=== PATIENT | female | born 1970 | race Caucasian/White ===

== ENCOUNTER 2018-08-19 23:39 | Emergency (ER) | payer SELFPAY ==
[~2018-08-19] VITALS: Ht 162.5 cm; Wt 54.4 kg
[~2018-08-19 23:39] MED LIST: CATAFLAM50 MG PO; KEFLEX500 MG PO; NKHM; PEN-VEE K500 MG PO
[2018-08-19 23:40] VITALS: BP 109/79
[2018-08-19] MEDS ORDERED: Motrin,Rufen800 MG PO (23:52)
[2018-08-19] MEDS ORDERED: PENICILLIN-VK500 M1 PO (23:52)
== END 2018-08-20 00:20 | disposition home or self-care (01) ==
LOC: ED 23:39
DX: K05.219 Aggressive periodontitis, localized, unspecified severity (principal); Z91.040 Latex allergy status

== ENCOUNTER → 2020-08-29 | Outpatient (CLI) | payer OTHER ==
[~2020-08-29] MED LIST changes: +ANTIBIOTIC; +HYDROCODONE-AC1 EAC1 PO; +Motrin,Rufen800 MG PO; +PENICILLIN VK500 MG PO; +PENICILLIN-VK500 M1 PO
== END | disposition home or self-care (01) ==
LOC: COVID19 13:17
PROVIDERS: ATTEND Dentist General Practice
DX: Z01.818 Encounter for other preprocedural examination (principal); Z20.822 Contact with and (suspected) exposure to COVID-19

== ENCOUNTER → 2020-09-02 | Day surgery (SDC) | payer OTHER ==
[2020-08-28 14:02] VITALS: BP 145/80
[2020-09-02] VITALS (7 sets, daily range): BP systolic 110–125; BP diastolic 71–82
[~2020-09-02] VITALS: Ht 162.5 cm; Wt 65.3 kg
== END ==
LOC: SDC 08-28 13:15
PROVIDERS: ATTEND Dentist General Practice
DX: K02.9 Dental caries, unspecified (principal); K05.6 Periodontal disease, unspecified; F41.9 Anxiety disorder, unspecified; K00.7 Teething syndrome; K21.9 Gastro-esophageal reflux disease without esophagitis; F17.210 Nicotine dependence, cigarettes, uncomplicated; Z98.890 Other specified postprocedural states

== ENCOUNTER 2022-10-19 15:33 | Emergency (ER) | payer OTHER ==
[2022-10-19 15:59] VITALS: BP 133/81
[2022-10-19] MEDS ORDERED: VIBRAMYCIN100 MG PO (18:24)
== END 2022-10-19 18:25 | disposition home or self-care (01) ==
LOC: ED 15:33
DX: S20.462A Insect bite (nonvenomous) of left back wall of thorax, initial encounter (principal); F17.200 Nicotine dependence, unspecified, uncomplicated; Z98.51 Tubal ligation status; W57.XXXA Bitten or stung by nonvenomous insect and other nonvenomous arthropods, initial encounter; Y93.89 Activity, other specified; Y92.89 Other specified places as the place of occurrence of the external cause; Y99.8 Other external cause status

== ENCOUNTER 2023-09-11 12:37 | Emergency (ER) | payer OTHER ==
[~2023-09-11] VITALS: Ht 162.5 cm; Wt 63.5 kg
[~2023-09-11 12:37] MED LIST changes: +VIBRAMYCIN100 MG PO
[2023-09-11 12:48] VITALS: BP 153/82
[2023-09-11] MEDS ORDERED: Ondansetron Hydrochloride 4 MG TAB PO ONE (13:00)
[2023-09-11] MEDS ORDERED: Ondansetron Hydrochloride 4 MG/2 ML VIAL IV ONE (13:05)
[2023-09-11] MEDS ORDERED: SODIUM CHLORIDE 0.9% 1,000 ML IV ONE (13:05)
[2023-09-11 13:18] LABS: BASO % 0.4 % (0.0-1.0); EOS # 0.1 10*3/uL (0.0-0.4); EOS % 0.5 % (1.0-4.0); HEMATOCRIT 42.6 % (37.0-47.0); LYMPH # 2.4 10*3/uL (1.3-4.4); LYMPH % 21.4 % (27.0-41.0); MEAN CELL VOLUME 97.5 fl (81.0-99.0); MEAN CORPUSCULAR HGB 32.7 pg (27.0-31.0); MEAN CORPUSCULAR HGB CONC 33.6 g/dl (33.0-37.0); MEAN PLATELET VOLUME 9.4 fl (9.6-12.3); MONO # 0.6 10*3/uL (0.1-1.0); MONO % 5.7 % (3.0-9.0); NEUT # 7.9 10*3/uL (2.3-7.9); NEUT % 71.8 % (47.0-73.0); PLATELET COUNT AUTOMATED 224 10*3/uL (130-400); RED BLOOD COUNT 4.37 10*6/uL (4.10-5.10); RED CELL DISTRI WIDTH 12.4 % (0-14.5); WHITE BLOOD COUNT 11.1 10*3/uL (4.8-10.8)
[2023-09-11 13:32] LABS: BILIRUBIN Negative (Negative); BLOOD 3+ (Negative); CLARITY Cloudy (Clear); COLOR Yellow (Yellow); GLUCOSE Negative (Negative); KETONE Negative (Negative); LEUKO ESTERASE Trace (Negative); NITRITE Negative (Negative); SPECIFIC GRAVITY >= 1.030 (1.001-1.030)
[2023-09-11 13:35] LABS: ALKALINE PHOSPHATASE 100 U/L (46-116); BUN 16 mg/dl (9-23); CHLORIDE 107 mmol/L (98-107); LIPASE 59 U/L (12-53); POTASSIUM 4.1 mmol/L (3.4-5.1); SGPT/ALT 22 U/L (5-49); TOTAL PROTEIN 7.2 gm/dL (6.0-8.0)
[2023-09-11 13:44] LABS: EPITHELIAL CELLS 16-20; RBC TNTC rbc/hpf (0-2)
[2023-09-11 13:45] LABS: BACTERIA 1+
[2023-09-11] MEDS ORDERED: Ketorolac Tromethamine 30 MG/ML VIAL IV ONE (13:50)
[2023-09-11] MEDS ORDERED: Ceftriaxone Sodium 1 GM/10 ML SYR IV ONE (13:55)
[2023-09-11] MEDS ORDERED: MELOXICAM7.5 MG PO (14:39)
[2023-09-11] MEDS ORDERED: FLOMAX0.4 MG PO (14:39)
[2023-09-11] MEDS ORDERED: CEPHALEXIN500 M1 PO (14:39)
[2023-09-11] MEDS ORDERED: ONDANSETRON4 MG SL (14:39)
== END 2023-09-11 14:52 | disposition home or self-care (01) ==
LOC: ED 12:37
PROVIDERS: Nurse Practitioner
DX: N39.0 Urinary tract infection, site not specified (principal); N20.0 Calculus of kidney; F17.200 Nicotine dependence, unspecified, uncomplicated; Z79.2 Long term (current) use of antibiotics; Z79.899 Other long term (current) drug therapy; Z98.51 Tubal ligation status

== ENCOUNTER 2023-11-13 06:06 | Emergency (ER) | payer OTHER ==
[~2023-11-13] VITALS: Ht 165.1 cm; Wt 62.6 kg
[~2023-11-13 06:06] MED LIST changes: +CEPHALEXIN500 M1 PO; +FLOMAX0.4 MG PO; +MELOXICAM7.5 MG PO; +ONDANSETRON4 MG SL
[2023-11-13 06:18] VITALS: BP 131/85
[2023-11-13 06:24] LABS: BILIRUBIN Negative (Negative); BLOOD Negative (Negative); CLARITY Clear (Clear); COLOR Yellow (Yellow); GLUCOSE Negative (Negative); KETONE Negative (Negative); LEUKO ESTERASE Negative (Negative); NITRITE Negative (Negative); PH 5.5 (4.5-8.0); UROBILINOGEN 0.2 E.U./dl (0.0-1.0)
[2023-11-13 06:44] LABS: BACTERIA 1+; RBC 0-2 rbc/hpf (0-2); WBC 0-2 wbc/hpf (0-5)
[2023-11-13] MEDS ORDERED: CIPRO500 MG PO (06:49)
[2023-11-13] MEDS ORDERED: Ciprofloxacin Hydrochloride 500 MG TAB PO ONE (06:50)
== END 2023-11-13 07:00 | disposition home or self-care (01) ==
LOC: ED 06:06
PROVIDERS: Internal Medicine
DX: N39.0 Urinary tract infection, site not specified (principal); K21.9 Gastro-esophageal reflux disease without esophagitis; F17.200 Nicotine dependence, unspecified, uncomplicated; Z98.51 Tubal ligation status; Z98.890 Other specified postprocedural states

== ENCOUNTER 2023-12-10 08:45 | Emergency (ER) | payer OTHER ==
[~2023-12-10] VITALS: Ht 162.5 cm; Wt 62.6 kg
[~2023-12-10 08:45] MED LIST changes: +CIPRO500 MG PO
[2023-12-10 08:52] VITALS: BP 174/124
[2023-12-10] MEDS ORDERED: NURTEC ODT75 MG PO (08:54)
[2023-12-10] MEDS ORDERED: AJOVY225 MG/1.5 SQ (08:54)
[2023-12-10] MEDS ORDERED: SODIUM CHLORIDE 0.9% 1,000 ML IV ONE (09:00)
[2023-12-10] MEDS ORDERED: Ketorolac Tromethamine 15 MG/ML VIAL IV ONE ×2 (09:00→11:35)
[2023-12-10] MEDS ORDERED: Ondansetron Hydrochloride 4 MG/2 ML VIAL IV ONE ×2 (09:00→11:35)
[2023-12-10 09:16] LABS: BASO % 0.5 % (0.0-1.0); EOS # 0.1 10*3/uL (0.0-0.4); EOS % 1.2 % (1.0-4.0); HEMATOCRIT 43.3 % (37.0-47.0); LYMPH # 3.1 10*3/uL (1.3-4.4); LYMPH % 35.1 % (27.0-41.0); MEAN CELL VOLUME 97.7 fl (81.0-99.0); MEAN CORPUSCULAR HGB 32.5 pg (27.0-31.0); MEAN CORPUSCULAR HGB CONC 33.3 g/dl (33.0-37.0); MEAN PLATELET VOLUME 9.2 fl (9.6-12.3); MONO # 0.5 10*3/uL (0.1-1.0); MONO % 5.6 % (3.0-9.0); NEUT # 5.1 10*3/uL (2.3-7.9); NEUT % 57.4 % (47.0-73.0); PLATELET COUNT AUTOMATED 214 10*3/uL (130-400); RED BLOOD COUNT 4.43 10*6/uL (4.10-5.10); RED CELL DISTRI WIDTH 12.7 % (0-14.5); WHITE BLOOD COUNT 8.9 10*3/uL (4.8-10.8)
[2023-12-10 09:29] LABS: BILIRUBIN 1+ (Negative); BLOOD 1+ (Negative); CLARITY Turbid (Clear); GLUCOSE Negative (Negative); LEUKO ESTERASE 2+ (Negative); NITRITE Positive (Negative)
[2023-12-10 09:38] LABS: BUN 10 mg/dl (9-23); CHLORIDE 107 mmol/L (98-107); POTASSIUM 3.6 mmol/L (3.4-5.1)
[2023-12-10 09:38] LABS: COLOR Red (Yellow); KETONE Negative (Negative)
[2023-12-10 09:45] LABS: RBC 51-100 rbc/hpf (0-2)
[2023-12-10] MEDS ORDERED: FLOMAX0.4 MG PO (11:34)
[2023-12-10] MEDS ORDERED: MACROBID100 M1 PO (11:34)
[2023-12-10] MEDS ORDERED: Ondansetron4 MG PO (11:34)
[2023-12-10] MEDS ORDERED: KETOROLAC10 MG PO (11:34)
[2023-12-10] MEDS ORDERED: Nitrofurantoin Monohydrate/N 100 MG CAP PO ONE (11:35)
[2023-12-10] MEDS ORDERED: Tamsulosin Hydrochloride 0.4 MG CAP PO ONE (11:35)
== END 2023-12-10 11:59 | disposition home or self-care (01) ==
LOC: ED 08:45
PROVIDERS: Nurse Practitioner Family
DX: N20.0 Calculus of kidney (principal); Z87.442 Personal history of urinary calculi; Z79.899 Other long term (current) drug therapy

== ENCOUNTER 2024-01-15 22:32 | Emergency (ER) | payer OTHER ==
[~2024-01-15] VITALS: Wt 62.6 kg
[~2024-01-15 22:32] MED LIST changes: +AJOVY225 MG/1.5 SQ; +KETOROLAC10 MG PO; +MACROBID100 M1 PO; +NURTEC ODT75 MG PO; +Ondansetron4 MG PO
[2024-01-15 22:57] LABS: BILIRUBIN Negative (Negative); BLOOD 3+ (Negative); CLARITY Clear (Clear); COLOR Yellow (Yellow); GLUCOSE Negative (Negative); KETONE Negative (Negative); LEUKO ESTERASE Negative (Negative); NITRITE Negative (Negative)
[2024-01-15 23:12] LABS: BACTERIA TRACE; EPITHELIAL CELLS 31-40; RBC 31-40 rbc/hpf (0-2)
[2024-01-15] MEDS ORDERED: Ondansetron Hydrochloride 4 MG/2 ML VIAL IV ONE (23:40)
[2024-01-15] MEDS ORDERED: Tamsulosin Hydrochloride 0.4 MG CAP PO ONE (23:40)
[2024-01-15] MEDS ORDERED: Ketorolac Tromethamine 30 MG/ML VIAL IV ONE (23:40)
[2024-01-15 23:55] VITALS: BP 116/79
[2024-01-16] MEDS ORDERED: Ondansetron4 MG PO (00:33)
[2024-01-16] MEDS ORDERED: HYDROCODONE-AC1 EAC1 PO (00:33)
[2024-01-16] MEDS ORDERED: FLOMAX0.4 MG PO (00:33)
== END 2024-01-16 01:12 | disposition home or self-care (01) ==
LOC: ED 22:32
PROVIDERS: Internal Medicine
DX: N20.9 Urinary calculus, unspecified (principal); N20.0 Calculus of kidney; K21.9 Gastro-esophageal reflux disease without esophagitis; Z87.442 Personal history of urinary calculi; Z98.51 Tubal ligation status; Z98.890 Other specified postprocedural states

== ENCOUNTER → 2025-04-16 | Outpatient (CLI) | payer OTHER | END | disposition home or self-care (01) | LOC: US 10:30 | PROVIDERS: ATTEND Nurse Practitioner Family | DX: N64.89 Other specified disorders of breast (principal); R92.2 Inconclusive mammogram ==